=== PATIENT | female | born 1930 | race Caucasian/White ===

== ENCOUNTER → 2017-02-27 | Outpatient (CLI) | payer MEDICARE ==
--- NOTE | 2017-02-27 15:24 | XR ---
EXAM TYPE: LUMBAR SPINE X RAY SERIES COMPARISON: NONE HISTORY: Low back pain TECHNIQUE: 4 views are submitted. FINDINGS: Alignment is anatomic. The pedicles are intact. The transverse processes are intact. Scoliotic curv ature with multilevel degenerative disc disease and diffuse osteopenia noted. Nonspecific calcifications are seen in the right upper quadrant. Multilevel facet arthropathy and severe degenerative disc disease at levels L2-3, L3-4 and L4-L5. Mod erate to severe changes at L1-L2 and L5-S1. IMPRESSION: 1. Scoliotic curvature with severe multilevel degenerative disc disease and age indeterminate danilo nichole deformity of L3. Correlate with CT or MRI as clinically warranted.
--- NOTE | 2017-02-27 15:26 | XR ---
EXAMINATION TYPE: XR thoracic spine complete DATE OF EXAM: 02/27/2017 COMPARISON: NONE HISTORY: Pain Findings: There is a scoliotic curvature of the spine with multilevel moderate degenerative disc disease. No se jill compression deformities. Pedicles are intact. Diffuse osteopenia noted. IMPRESSION: 1. Scoliotic curvature with multilevel degenerative disc disease.
== END ==
LOC: RADXRMAIN 14:33
PROVIDERS: ATTEND Internal Medicine
DX: M51.36 Other intervertebral disc degeneration, lumbar region (principal); M41.86 Other forms of scoliosis, lumbar region; M51.34 Other intervertebral disc degeneration, thoracic region; M41.84 Other forms of scoliosis, thoracic region
CPT/HCPCS: 72072; 72100